=== PATIENT | female | born 1980 | race Caucasian/White ===

== ENCOUNTER 2021-05-02 11:20 | Day surgery (SDC) | payer MEDICAID ==
[2021-04-25 15:23] LABS: BASOPHILS # (AUTO) 0.1 X10'3 (0-0.2); BASOPHILS % (AUTO) 0.8 % (0-1); EOSINOPHILS # (AUTO) 0.2 X10'3 (0-0.9); LYMPHOCYTES # (AUTO) 3.6 X10'3 (1.1-4.8); LYMPHOCYTES % (AUTO) 44.7 % (21-51); MEAN CORPUSCULAR HEMOGLOBIN 31.1 PG (27.0-31.0); MEAN CORPUSCULAR HGB CONC 34.8 g/dL (33.0-36.5); MEAN CORPUSCULAR VOLUME 89.5 FL (78-98); MEAN PLATELET VOLUME 7.6 FL (7.4-10.4); MONOCYTES # (AUTO) 0.5 X10'3 (0-0.9); MONOCYTES % (AUTO) 6.5 % (2-12); NEUTROPHILS # (AUTO) 3.6 X10'3 (1.8-7.7); PRE OP HEMOGLOBIN 13.6 g/dL (12.0-16.0); PRE OP PLATELET COUNT 394 X10'3 (140-440); RED BLOOD COUNT 4.36 X10'6 (4.20-5.60); RED CELL DISTRIBUTION WIDTH 13.4 % (11.5-14.5)
[2021-04-25 15:27] LABS: URINE HCG NEGATIVE (NEG)
[2021-04-25 15:37] LABS: ALBUMIN 3.8 G/DL (3.4-5.0); ALKALINE PHOSPHATASE 55 IU/L (46-116); BLOOD UREA NITROGEN 12 MG/DL (7-18); BUN/CREATININE RATIO 14.1 (6.6-38.0); CALCIUM 9.2 MG/DL (8.5-10.1); CHLORIDE 104 MMOL/L (99-107); CREATININE 0.85 MG/DL (0.40-0.90); PRE OP ALT 34 U/L (30-65); PRE OP ANION GAP 8 (8-16); PRE OP AST 26 U/L (10-37); PRE OP BILIRUB, TOTAL 0.7 MG/DL (0.0-1.0); PRE OP GLUCOSE 84 MG/DL (70-104); PRE OP POTASSIUM 3.8 MMOL/L (3.4-5.1); PRE OP SODIUM 140 MMOL/L (135-145); TOTAL CARBON DIOXIDE 27.9 MMOL/L (24-32); TOTAL PROTEIN 7.8 G/DL (6.4-8.2); eGFR 74 ML/MIN
[2021-04-25 15:39] LABS: CLARITY,URINE SLIGHTLY CLOUDY (Clear); COLOR,URINE YELLOW (Yellow); GLUCOSE, URINE NEGATIVE (Neg); KETONES,URINE TRACE mg/dl (Neg); LEUKOCYTE ESTERASE ,URINE NEGATIVE (Neg); NITRITES, URINE NEGATIVE (Neg); OCCULT BLOOD,URINE TRACE-INTACT (Neg); PH,URINE 6.5 (4.8-8.0); PROTEIN,URINE NEGATIVE (Neg); UROBILINOGEN,URINE 0.2 E.U/dL (0.2-1.0)
[2021-04-25 15:50] LABS: UA COLLECTION TYPE CLN CATCH MIDSTREAM
[2021-04-25 16:00] LABS: SQUAMOUS EPITHELIAL CELL,UR MANY /LPF (FEW)
[2021-04-25 16:01] LABS: MUCUS STRANDS MODERATE /LPF (Neg)
[2021-04-25 16:02] LABS: RBC,URINE 0-2 /HPF (0-2); WBC,URINE 0-4 /HPF (0-4)
[2021-04-25 16:03] LABS: BACTERIA,URINE FEW /HPF (Neg)
[~2021-05-02] VITALS: Ht 157.5 cm; Wt 72.7 kg
[2021-05-02] VITALS (8 sets, daily range): BP systolic 119–148; BP diastolic 64–89
[~2021-05-02 11:20] MED LIST: ASCO100089 PO; FEXO-62 PO; FOLI0.4T14 PO; MULT-1085 PO; MUSHROOM SUPPLEMENT; PYRI200T9 PO; ZINC50TA67 PO; [UNRECOGNIZED DRUG - OTHER] PO; cefoxitin sod inj 2,000 MG in dextrose 5%-water 100 ML IV ONE; famotidine 20mg tablet PO ONE; ringers solution, lacted 1,000 ML IV SCH
[2021-05-02] MEDS ORDERED: vasoPRESSIN 20 units/ml inj. ONE (12:39)
[2021-05-02] MEDS ORDERED: fentaNYL/PF 50MCG/1 ML 2ML syringe ONE (13:03)
[2021-05-02] MEDS ORDERED: midazolam 1 mg/ML 2ml injection ONE (13:03)
[2021-05-02] MEDS ORDERED: meperidine/PF 25mg/ml syringe IV PRN ×3 (13:20)
[2021-05-02] MEDS ORDERED: proCHLORperazine 10 MG/2 ml inj IV PRN (13:20)
[2021-05-02] MEDS ORDERED: ringers solution, lacted 1,000 ML IV SCH (13:20)
[2021-05-02] MEDS ORDERED: ondansetron/PF 4mg/2ml inj ONE (13:20)
[2021-05-02] MEDS ORDERED: LIDOcaine 2% (20mg/ml) 5ml vial ONE (13:20)
[2021-05-02] MEDS ORDERED: morphine 4 MG/ML inj SYRINge IV PRN (13:20)
[2021-05-02] MEDS ORDERED: propofol inj 20 ML IV ONE (13:20)
[2021-05-02] MEDS ORDERED: dexamethasone sod phosphate 4mg/ml inj. ONE (13:20)
[2021-05-02] MEDS ORDERED: morphine 2 MG/ML inj. syringe IV PRN (13:20)
[2021-05-02] MEDS ORDERED: ondansetron/PF 4mg/2ml inj IV PRN (13:20)
[2021-05-02] MEDS ORDERED: meperidine/PF 25mg/ml syringe ONE (13:25)
--- NOTE | 2021-05-02 13:35 | NUR ---
PT ARRIVED TO RECOVERY VIA GURNEY, WAKING UP, ACCOMPANIED BY DR SPENCER-ANESTHESIA, REPORT GIVEN, VSS, DENIES PAIN, PIV 20 L A/C, SCDS ON, ARYAN PAD IN PLACE-NO DRAINAGE NOTED
--- NOTE | 2021-05-02 15:05 | NUR ---
PT AWAKE AND GETTING DRESSED, VSS, DENIES PAIN, UP TO VOID WITHOUT DIFFICULTY, GIVEN ARYAN PAD FOR RIDE HOME, PIV D/CD-CANULA INTACT, SCDS OFF,D/C INSTRUCTIONS GIVEN TO PT-ALL QUESTIONS ANSWERED, TAKEN VIA W/C WITH ALL BELONGINGS TO VEHICLE, DRIVEN BY .
== END 2021-05-02 15:05 | disposition home or self-care (01) ==
LOC: PAS 11:20
PROVIDERS: ATTEND Obstetrics & Gynecology Obstetrics
DX: D06.0 Carcinoma in situ of endocervix (principal); Z20.822 Contact with and (suspected) exposure to COVID-19; Z79.899 Other long term (current) drug therapy; Z80.3 Family history of malignant neoplasm of breast; Z82.49 Family history of ischemic heart disease and other diseases of the circulatory system
CPT/HCPCS: 36415; 57520; 80053; 81001; 81025; 82948; 85025; 86885; 86900; 86901; J0694; J1100; J2175; J2250; J2405; J2704; J3010; J3490; J7030; J7060; J7120; U0003; U0005; Z7506; Z7512; A4618; A7000